=== PATIENT | male | born 1985 | race Two or more races ===

== ENCOUNTER 2017-09-02 20:51 | Emergency (ER) | payer SELFPAY ==
[2017-09-02] MEDS: IV NORMAL SALINE 1000ML BAG 1,000 ML IV (21:46)
[2017-09-02] MEDS: diphenhydrAMINE 50 MG/ML VIAL IVP (22:03)
[2017-09-02] MEDS: METOCLOPRAMIDE HCL 10 MG/2 ML VIAL. IV (22:03)
[2017-09-02] MEDS: PROCHLORPERAZINE 10 MG/2 ML VIAL. IV (22:04)
== END 2017-09-02 23:44 | disposition home or self-care (01) ==
LOC: ER 20:51
DX: R51 Headache (principal); R11.0 Nausea
CPT/HCPCS: 70450; 96361; 96374; 96375; 99285-25; J0780; J1200; J2765; J7030